=== PATIENT | male | born 1975 ===

== ENCOUNTER → 2021-07-15 | Outpatient (CLI) | payer OTHER | END | disposition home or self-care (01) | LOC: RAD 13:52 | DX: M54.2 Cervicalgia (principal); M25.78 Osteophyte, vertebrae ==

== ENCOUNTER 2021-12-28 14:22 | Outpatient (CLI) | payer OTHER | END 2021-12-28 14:39 | disposition home or self-care (01) | LOC: RAD 14:22 | DX: M54.2 Cervicalgia (principal) ==